=== PATIENT | female | born 1945 | race Two or more races ===

== ENCOUNTER 2022-05-27 12:53 | Day surgery (SDC) | payer OTHER, MEDICAID ==
[2022-05-25 09:45] LABS: Basophils # (auto) 0 10 ^3/uL (0-0.2); Basophils % (auto) 0.3 % (0.0-2.0); Eosinophils # (auto) 0.1 10 ^3/uL (0-0.8); Eosinophils % (auto) 1.9 % (0.0-7.0); Hemoglobin 13.4 g/dL (12.2-16.2); Lymphocytes % (auto) 38.3 % (10.0-50.0); Mean Corpuscular Hemoglobin 30.7 pg (28.0-32.0); Mean Corpuscular Hgb Conc. 34.3 g/dL (32.0-36.0); Mean Corpuscular Volume 89.5 fL (80.0-100.0); Monocytes # (auto) 0.4 10 ^3/uL (0-1.3); Monocytes % (auto) 7.4 % (0.0-12.0); Neutrophils # (auto) 2.7 10 ^3/uL (1.6-8.6); Neutrophils % (auto) 52.1 % (37.0-80.0); Nucleated Red Blood Cells % 0.1 %; Red Blood Cells 4.35 10^6/uL (4.0-5.20); Red Cell Distribution Width 13.4 % (11.8-14.3); White Blood Cell 5.3 10^3/uL (4.4-10.8)
[2022-05-25 09:55] LABS: Urine Bacteria NONE SEEN /hpf (None Seen); Urine Blood TRACE /uL (Negative); Urine Specific Gravity 1.006 (1.001-1.035); Urine WBC 4 /hpf (0 - 5)
[2022-05-25 10:12] LABS: INR 0.95 (0.9-1.15); Partial Thromboplastin Time 24.7 sec (24.6-33.4)
[2022-05-25 10:31] LABS: Albumin 4.2 g/dL (3.4-5.0)
[2022-05-25 10:36] LABS: BUN/Creatinine Ratio 22.6; Bilirubin, Total 0.6 mg/dL (0.2-1.0); Total Protein 7.4 g/dL (6.4-8.2)
[~2022-05-27] VITALS: Ht 160 cm; Wt 59.0 kg
[2022-05-27] MEDS ORDERED: ALEN70TA74 PO (13:25)
[2022-05-27] MEDS ORDERED: OMEP20TA PO (13:25)
[2022-05-27] MEDS ORDERED: AML5T PO (13:25)
[2022-05-27] MEDS ORDERED: HYDR25TA5 PO (13:25)
[2022-05-27] MEDS ORDERED: BENA40TA8 PO (13:25)
[2022-05-27] MEDS ORDERED: SODIUM CHLORIDE LOCK 10 ML ONE (14:45)
[2022-05-27] MEDS ORDERED: diphenhdrAMINE HCL 50 MG/1 ML VL ONE (14:46)
[2022-05-27] MEDS ORDERED: LIDOCAINE VISCOUS 2% 15ML UD ONE (14:46)
[2022-05-27] MEDS: MIDAZOLAM HCL 5 MG/ML-1ML VIAL ONE ×2 (15:33→15:36)
[2022-05-27] MEDS: fentaNYL CITRATE 100 MCG/2 ML VL ONE ×2 (15:33→15:36)
[2022-05-27 16:20] VITALS: BP 122/66
== END 2022-05-27 16:40 | disposition home or self-care (01) ==
LOC: GI 12:53
PROVIDERS: ATTEND Internal Medicine Gastroenterology
DX: R10.13 Epigastric pain (principal); A04.8 Other specified bacterial intestinal infections; K44.9 Diaphragmatic hernia without obstruction or gangrene; K29.50 Unspecified chronic gastritis without bleeding; K31.89 Other diseases of stomach and duodenum; Z20.822 Contact with and (suspected) exposure to COVID-19
CPT/HCPCS: 36415; 43239; 80053; 81001; 85025; 85610; 85730; 88305; 88342; J1200; J2250; J3010; J7030; U0003; G0500